=== PATIENT | male | born 1970 | race African-American/Black ===

== ENCOUNTER → 2016-11-17 | Outpatient (REF) | payer OTHER | LOC: M LABDRAW1 15:40 | PROVIDERS: ATTEND Physician Assistant Medical | DX: E29.1 Testicular hypofunction (principal) ==

== ENCOUNTER → 2017-01-22 | Outpatient (REF) | payer OTHER | LOC: M LABDRAW1 11:32 | PROVIDERS: ATTEND Physician Assistant Medical | DX: E29.1 Testicular hypofunction (principal); E55.9 Vitamin D deficiency, unspecified ==